=== PATIENT | male | born 1985 | race Caucasian/White ===

== ENCOUNTER 2019-06-05 08:13 | Emergency (ER) | payer OTHER, SELFPAY ==
[2019-06-05 08:35] VITALS: BP 147/82; PULSE 78; RESP 13; TEMP 36.6; O2SAT 99
--- NOTE | 2019-06-05 08:46 | ED.EYEPROB ---
HPI - Eye Problem General Chief complaint: Eye Problems Stated complaint: METAL IN RIGHT EYE Time Seen by Provider: 06/05/19 08:14 Source: patient Mode of arrival: Ambulatory Limitations: no limitations History of Present Illness HPI Narrative: 33-year-old male nonsmoker with noncontributory medical history presents with a chief complaint of a metallic foreign body in his right eye. 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 He has pain in tearing and some blurring of his vision. His tetanus is current. He denies any other injury. He does not were contacts. MD chief complaint: eye pain, eye redness and eye injury Onset (ago): day(s) Onset description: sudden Duration: constant Location: right eye Eye Symptoms: burning and redness Place: work Mechanism: occurred while hammering/grinding Severity: mild If Pain, Quality: sharp Treatments Prior to Arrival: none Related Data Patient tetanus UTD: Yes Previous Rx's Medication Instructions Recorded sulfacetamide sodium 1 drop EYE-RIGHT Q2H #15 ml 06/05/19 Review of Systems Constitutional Constitutional: Denies chills, Denies fatigue, Denies fever(s), Denies frequent falls, Denies lethargy and Denies weakness Eyes Eyes: Reports change in vision, Denies eye discharge, Reports irritation and Denies loss of vision ENT Ears, Nose, Mouth, and Throat: Denies change in voice, Denies dizziness, Denies neck pain, Denies sore throat and Denies throat swelling Cardiovascular Cardiovascular: Denies chest pain, Denies irregular heart rhythm, Denies lightheadedness, Denies palpitations, Denies dyspnea, Denies dyspnea on exertion and Denies orthopnea Respiratory Respiratory: Denies cough, Denies dyspnea, Denies dyspnea on exertion and Denies wheezing Gastrointestinal Gastrointestinal: Denies abdominal pain, Denies change in bowel habits, Denies diarrhea, Denies nausea and Denies vomiting Genitourinary Genitourinary: Denies hematuria, Denies flank pain, Denies urinary incontinence and Denies urinary urgency Musculoskeletal Musculoskeletal: Denies back pain, Denies muscle weakness, Denies neck pain, Denies numbness and Denies tingling Integumentary/Breasts Skin/Breast: Denies pruritus, Denies erythema, Denies rash and Denies wounds Neurologic Neurologic: Denies behavioral changes, Denies confusion, Denies dizziness, Denies frequent falls, Denies loss of vision, Denies numbness, Denies tingling and Denies weakness Psychiatric Psychiatric: Denies anxiety, Denies behavioral changes, Denies confusion, Denies depression, Denies homicidal ideation and Denies suicidal ideation Endocrine Endocrine: Denies fatigue, Denies flushing and Denies palpitations Hematologic/Lymphatic Hematologic/Lymphatic: Denies easy bruising Allergic/Immunologic Allergic/Immunologic: Denies urticaria, Denies throat swelling and Denies wheezing Patient History Substance Use Type: does not use Exam Narrative Exam Narrative: GEN: AOx3 and in mild distress EYES: Pupils are equal, round, and reactive to light and accommodation. Extraoccular muscles are intact bilaterally. Mild scleral injection of right eye. Small metallic foreign body noted at the 9 o'clock position under Wood's lamp. Small amount of fluorescein uptake under UV lamp. Complete resolution of painful symptoms after use of proparacaine. Small metallic esteban easily removed with blunt needle CHEST: Lungs are clear to auscultation bilaterally and free of wheezes, rales, or rhonchi. Heart rate is regular rhythm, there are no murmurs, clicks, rubs, or gallops. There is no chest wall tenderness. ABD: Abdomen is soft and nontender. There is no guarding or rebound. Bowel sounds are normal in all 4 quadrants. There is no mass or organomegaly. EXT: Full painless ROM of all extremities with no loss of sensation or strength. SKIN: Warm, pink, and dry. No erythema or rash Initial Vital Signs Initial Vital Signs: Vital Signs Temperature 97.8 F 06/05/19 08:35 Pulse Rate 78 06/05/19 08:35 Respiratory Rate 13 06/05/19 08:35 Blood Pressure 147/82 H 06/05/19 08:35 Pulse Oximetry 99 06/05/19 08:35 Course Orders Ordered: Discontinued Medications Proparacaine HCl (Parcaine 0.5% Ophth Catrachita) 1 drops EYE-RIGHT NOW ONE Stop: 06/05/19 08:47 Last Admin: 06/05/19 09:01 Dose: 1 drop Documented by: ARANZA Vital Signs Vital signs: Vital Signs - 8 hr 06/05/19 08:35 Temperature 97.8 F Pulse Rate 78 Respiratory Rate 13 Blood Pressure 147/82 H Pulse Oximetry 99 Discharge Plan Departure Patient Disposition: Home Clinical Impression: Corneal abrasion Qualifiers: Encounter type: initial encounter Laterality: right Qualified Code(s): S05.01XA - Injury of conjunctiva and corneal abrasion without foreign body, right eye, initial encounter Foreign body in eye Qualifiers: Encounter type: initial encounter Laterality: right Qualified Code(s): T15.91XA - Foreign body on external eye, part unspecified, right eye, initial encounter Discharge Date/Time: 06/05/19 09:09 Instructions: DI for Corneal Foreign Body-Eye Activity Restrictions/Additional Instructions: *You have been diagnosed with [corneal abrasion and foreign body right eye] *What to do: *Take medications as directed: Your prescription has been electronically transmitted to [employer] [facility] *Follow up with your primary care provider in 2-3 days, call for an appointment. Let them know you were seen in the Emergency Department and that we ask that you be seen in follow up *Return to ER if you should have any new, worsening or concerning symptoms Prescriptions: New sulfacetamide sodium 10 % drops 1 drop EYE-RIGHT Q2H Qty: 15 RF: 0
[2019-06-05] MEDS: PROPARACAINE 0.5% OPHTH SOL 1 DROPS EYE-RIGHT (09:01)
--- NOTE | 2019-06-05 09:04 | PC.NURSE ---
Addendum entered by Almita Javed R.N. 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
--- NOTE | 2019-06-05 09:05 | PC.NURSE ---
after propacaine drops.
== END 2019-06-05 09:09 | disposition home or self-care (01) ==
PROVIDERS: Emergency Provider Emergency Medicine
DX: T15.01XA Foreign body in cornea, right eye, initial encounter (principal); W45.8XXA Other foreign body or object entering through skin, initial encounter
CPT/HCPCS: 99281; 99282

== ENCOUNTER 2021-05-27 08:34 | Emergency (ER) | payer SELFPAY ==
[2021-05-27 09:56] VITALS: BP 118/78; PULSE 78; RESP 16; O2SAT 99
[2021-05-27] MEDS: CYCLOBENZAPRINE 10 MG TABLET PO (10:08)
[2021-05-27] MEDS: KETOROLAC 30 MG/ML VIAL IM (10:08)
--- NOTE | 2021-05-27 10:30 | PC.NURSE ---
CSM intact, limited by pain only. Denies bowel / bladder difficulty. 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
--- NOTE | 2021-05-27 10:36 | ED.BACK ---
HPI - Back Pain/Injury General Chief Complaint: Back Pain/Injury Stated Complaint: severe low back pain x2 days Time Seen by Provider: 05/27/21 10:36 Source: patient Mode of arrival: Wheelchair Limitations: no limitations History of Present Illness HPI Narrative: This is a 35-year-old male who comes with complaint of low back pain on the left. Patient has a history of L5-S1 injury. 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 He does not have any radiation currently. No loss of bowel or bladder control. He has some chronic numbness and tingling but no new changes. This is not different from his typical back pain and when flares. He has not any fevers or chills. Patient denies any weakness. He took an ibuprofen overnight but could not control his pain. He denies any other injuries. Had x-rays 2 months ago. He has not been to PT in the past. He does not tolerate opiates well he states that they make him nauseous, itchy and have red hot skin. Related Data Home Medications Medication Instructions Recorded Confirmed dextroamphetamine-amphetamine 10 10 mg PO QAM 05/27/21 05/27/21 mg tablet ibuprofen 800 mg tablet 800 mg PO Q8H PRN 05/27/21 05/27/21 Previous Rx's Medication Instructions Recorded cyclobenzaprine 10 mg tablet 10 mg PO TID PRN #14 tab 05/27/21 meloxicam 7.5 mg tablet 7.5 mg PO DAILY PRN #14 tab 05/27/21 Allergies Allergy/AdvReac Type Severity Reaction Status Date / Time Opioids - Morphine Analogues AdvReac Unknown Verified 05/27/21 09:59 Review of Systems Review of Systems ROS Unobtainable: All systems reviewed & are unremarkable except as noted in HPI and below Patient History Medical History Back injury Substance Use Type: does not use Exam Narrative Exam Narrative: GENERAL: Alert and oriented x three, male in moderate distress. HEENT: Head normocephalic, atraumatic, EOMI, pupils reactive, face symmetric, moist mucous membranes NECK: Supple, full range of motion CARDIOVASCULAR: Regular rate and rhythm without murmurs, rubs or gallops. RESPIRATORY: Breath sounds equal bilaterally, no wheezes rales or rhonchi. ABDOMEN: Soft, nontender. Normoactive bowel sounds all 4 quadrants. No guarding or rebound, rigidity, no mass : No CVA tenderness BACK: No cervical, thoracic or lumbar vertebral point tenderness. Patient has tenderness over the left SI joint which is mild. He has decreased range of motion, and has pain rolling from side to side on the bed. Rectal exam is deferred. Muscle strength is 5/5 in lower extremities, patient has increased pain with leg raise bilaterally. DTRs are 2/4 and lower extremities. Dorsalis pedis and tibialis pulses are 2+ and lower extremities. Sensation is intact in the lower extremities. EXTREMITIES: Normal range of motion, no clubbing or edema. Neurovascularly intact NEUROLOGICAL: Cranial nerves II through XII grossly intact. Moving all extremities SKIN: Warm, dry, no petechiae, no rashes or lesions. Initial Vital Signs Initial Vital Signs: Vital Signs Pulse Rate 78 05/27/21 09:56 Respiratory Rate 16 05/27/21 09:56 Blood Pressure 118/78 05/27/21 09:56 Pulse Oximetry 99 05/27/21 09:56 Course Orders Ordered: Discontinued Medications Cyclobenzaprine HCl (Cyclobenzaprine 10 Mg Tablet) 10 mg PO NOW ONE Stop: 05/27/21 10:01 Last Admin: 05/27/21 10:08 Dose: 10 mg Documented by: ELMIRA Ketorolac Tromethamine (Ketorolac 30 Mg/Ml Vial) 30 mg IM NOW ONE Stop: 05/27/21 10:01 Last Admin: 05/27/21 10:08 Dose: 30 mg Documented by: ELMIRA Vital Signs Vital signs: Vital Signs - 8 hr 05/27/21 09:56 Pulse Rate 78 Respiratory Rate 16 Blood Pressure 118/78 Pulse Oximetry 99 MDM - Back Pain/Injury MDM Narrative Medical decision making narrative: This is a 35-year-old male who comes in with acute on chronic low back pain which was exacerbated when he was lifting a 5 gal bucket. Patient was having some improvement with Toradol and Flexeril here in the department. He feels comfortable with pain management and follow-up with primary care. He does not have a dedicated PCP but does go to the walk-in clinic. We discussed that PT may be helpful. He had x-rays 2 months ago does not have any red flag symptoms that would indicate additional testing at this time. Discharge Plan Departure Patient Disposition: Home Clinical Impression: Pain in left lumbar region of back Instructions: DI for Low Back Pain Activity Restrictions/Additional Instructions: Follow-up with primary care for recheck. You may find improvement over the long-term with physical therapy or potentially other interventions. You can call the call center at [phone] to establish with a primary care physician. You may take Flexeril 1 tablet every 8 hours as needed for muscle spasm. Meloxicam 1 tablet q.12 hours as needed pain. You may take Tylenol up to a 1000 mg every 8 hours as needed. Prescription sent to [facility] Please return for rapidly worsening or uncontrolled pain, new numbness, weakness, loss of bowel or bladder control, fevers or other new or concerning symptoms. Prescriptions: New meloxicam 7.5 mg tablet 7.5 mg PO DAILY PRN (Reason: pain) Qty: 14 0RF cyclobenzaprine 10 mg tablet 10 mg PO TID PRN (Reason: muscle spasm) Qty: 14 0RF No Action ibuprofen 800 mg Tablet 800 mg PO Q8H PRN (Reason: pain mod) 0RF dextroamphetamine-amphetamine 10 mg tablet 10 mg PO QAM 0RF
--- NOTE | 2021-05-27 14:42 | PC.NURSE ---
late entry: provided walker for pt ambulation.
== END 2021-05-27 11:00 | disposition home or self-care (01) ==
PROVIDERS: Emergency Provider Emergency Medicine
DX: M54.50 Low back pain, unspecified (principal); Z88.5 Allergy status to narcotic agent
CPT/HCPCS: 96372; 99283; J1885

== ENCOUNTER 2022-02-19 12:23 | Emergency (ER) | payer OTHER, SELFPAY ==
[2022-02-19 12:42] VITALS: BP 166/97; PULSE 97; RESP 15; TEMP 36.6; O2SAT 100; BMI 31.5
--- NOTE | 2022-02-19 12:49 | DI.RAD.S_ITS ---
PROCEDURE: XR HAND LT MIN 3V INDICATIONS: hand/5th digit injury TECHNIQUE: 3 views of the hand(s) acquired. COMPARISON: None. FINDINGS: Bones: No fractures or dislocations. Carpal bones are normally aligned. No suspicious bony lesions. Soft tissues: Soft tissue injury is seen, with swelling. There is radiopaque debris seen along the tip of the 5th finger. Overlying bandaging material is seen IMPRESSION: No acute fracture is identified. Soft tissue injury of the 5th finger can be seen. Dictated by: Stephen Del Rosario M.D. on 02/19/2022 at 12:13 Approved by: Stephen Del Rosario M.D. on 02/19/2022 at 12:14
--- NOTE | 2022-02-19 13:40 | ED.GENADULT ---
HPI - General Adult General Chief complaint: Extremity Injury, Upper Stated complaint: Laceration on the left hand Time Seen by Provider: 02/19/22 13:31 Source: patient Mode of arrival: Ambulatory History of Present Illness HPI narrative: Patient is a 36-year-old male. He is right-hand dominant who is here with a left little finger injury. 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 Cause an injury to his left little finger. Does not know when his last tetanus shot was. Has not done any intervention prior to arrival other than covering it with a bandage. No other injuries from the event. Related Data Home Medications Medication Instructions Recorded Confirmed dextroamphetamine-amphetamine 10 10 mg PO QAM 05/27/21 05/27/21 mg tablet ibuprofen 800 mg tablet 800 mg PO Q8H PRN pain mod 05/27/21 05/27/21 Previous Rx's Medication Instructions Recorded cyclobenzaprine 10 mg tablet 10 mg PO TID PRN muscle spasm #14 05/27/21 tabs meloxicam 7.5 mg tablet 7.5 mg PO DAILY PRN pain #14 tabs 05/27/21 Allergies Allergy/AdvReac Type Severity Reaction Status Date / Time Opioids - Morphine Analogues AdvReac Unknown Verified 02/19/22 12:42 Review of Systems Musculoskeletal Comments: Injury to left little finger Integumentary/Breasts Comments: Injury to the skin of the left little finger Neurologic Comments: No numbness over the area Hematologic/Lymphatic On Anticoagulants: No Patient History Medical History Back injury Gastroesophageal reflux disease Social History Smoking Status: Unknown if ever smoked Smoking Status: Unknown if ever smoked alcohol intake frequency: holidays/special occasions only Substance Use Type: does not use Exam Initial Vital Signs Initial Vital Signs: Vital Signs Temperature 97.9 F 02/19/22 12:42 Pulse Rate 97 H 02/19/22 12:42 Respiratory Rate 15 02/19/22 12:42 Blood Pressure 166/97 H 02/19/22 12:42 Pulse Oximetry 100 02/19/22 12:42 Oxygen Delivery Method 02/19/22 12:42 [facility] Head: normal to inspection and normocephalic Cardio Pulses: radial pulses present on the left Skin Other: Patient has a complete avulsion of the skin of the left little finger that involves just proximal to the MCP joint to distal to the D IP joint but proximal to the nail. The medial aspect of the little finger skin is intact over the palmar lateral and dorsal aspect is completely avulsed. Neuro Other: Sensation intact to light touch distal aspect of left little finger Extrem Other: There does not appear to be any tendon or bone involvement. He can flex and extend his little finger of very small amount but he states that it feels ?stiff ? Procedures Nerve Block Nerve Block 1: Local Anesthetic: lidocaine 1% Amount of anesthesia used (mL): 15 Side: left Nerve Blocks: digital Procedure Successful: Yes Patient Tolerated Procedure: Well Course Orders Ordered: ED Orders 02/19/22 12:49 XR hand LT min 3V Stat 02/19/22 15:15 COVID19 -Nasal RAPID/Pre-Proc Stat Discontinued Medications Diphtheria/Tetanus/Acell Pertussis (Tet,Diph,Pertuss(Acell),Vac/Pf 0.5 Ml Syringe) 0.5 ml IM .ONCE ONE Stop: 02/19/22 13:34 Last Admin: 02/19/22 13:54 Dose: 0.5 ml Documented By: KALIN Cefazolin Sodium/Dextrose (Ancef) 100 mls @ 200 mls/hr IV NOW ONE Stop: 02/19/22 14:29 Last Infusion: 02/19/22 14:52 Dose: 0 mls/hr Documented By: Admin: 02/19/22 14:20 Dose: 200 mls/hr Documented By: ESPERANZA Lidocaine HCl (Lidocaine 1% 20 Ml) 10 ml INJ NOW ONE Stop: 02/19/22 14:01 Last Admin: 02/19/22 14:24 Dose: 10 ml Documented By: CTS Vital Signs Vital signs: Vital Signs - 8 hr 02/19/22 12:42 Temperature 97.9 F Pulse Rate 97 H Respiratory Rate 15 Blood Pressure 166/97 H Pulse Oximetry 100 Oxygen Delivery Method Room Air Medical Decision Making Lab Data Labs: Lab Results 02/19/22 Range/Units 15:15 SARS-CoV-2 (PCR) Negative (Negative) Imaging Data Extremity x-ray #1: Radiologist's Impression: [address] [address] XRay Report Signed Patient: Rojas Peters II MR#: [id number] : 1985 Acct:[id number] Age/Sex: 36 / M Date of Service: 02/19/22 Loc: ED Accession Number: [id number] ?? Procedure: XR hand LT min 3V Ordering Provider: Angel Rob D.O. PROCEDURE:? XR HAND LT MIN 3V ? INDICATIONS:? hand/5th digit injury ? TECHNIQUE:? 3 views of the hand(s) acquired.? ? COMPARISON:? None. ? FINDINGS:? ? Bones:? No fractures or dislocations.? Carpal bones are normally aligned.? No suspicious bony lesions.? ? Soft tissues:? Soft tissue injury is seen, with swelling.? There is radiopaque debris seen along the tip of the 5th finger.? Overlying bandaging material is seen ? ? ? IMPRESSION:? No acute fracture is identified. ? Soft tissue injury of the 5th finger can be seen. ? ? Dictated by: Stephen Del Rosario M.D. on 02/19/2022 at 12:13 ? ? Approved by: Stephen Del Rosario M.D. on 02/19/2022 at 12:14? MDM Narrative Medical decision making narrative: No fractures noted. The patient is neurovascularly intact. His tetanus was updated. He was given 2 g of Ancef. Discussed the case with orthopedics here at this facility who recommended patient be transferred to facility that has hand/Plastic surgery is he most likely is going to need a full-thickness graft. Discussed the case with Dr. Sanon at [facility] with the hand surgery who was able to evaluate the clinical pictures that were sent. She recommended cleaning the wound which was done. A dressing was placed over the area. It was splinted. He will be sent by private vehicle to [facility] for further evaluation. Discharge Plan Departure Patient Disposition: [facility] Clinical Impression: Avulsion of skin of finger Activity Restrictions/Additional Instructions: After discharge your to go to the emergency department at [facility] in [facility]. I recommend nothing to eat or drink between now and when you are evaluated there is your most likely going to need surgical intervention. Prescriptions: No Action ibuprofen 800 mg Tablet 800 mg PO Q8H PRN (Reason: pain mod) dextroamphetamine-amphetamine 10 mg tablet 10 mg PO QAM meloxicam 7.5 mg tablet 7.5 mg PO DAILY PRN (Reason: pain) Qty: 14 0RF cyclobenzaprine 10 mg tablet 10 mg PO TID PRN (Reason: muscle spasm) Qty: 14 0RF
[2022-02-19] MEDS: TET,DIPH,PERTUSS(ACELL),VAC/PF 0.5 ML SYRINGE IM (13:54)
[2022-02-19] MEDS: CEFAZOLIN 2 GM/100 ML PREMIX 100 ML IV (14:20)
[2022-02-19] MEDS: LIDOCAINE 1% 20 ML 10 ML INJ (14:24)
[2022-02-19 15:38] LABS: COVID19 -Nasal RAPID Negative (Negative)
[2022-02-19] MEDS: ACETAMINOPHEN 325 MG TABLET 975 MG PO (16:00)
[2022-02-19 16:24] VITALS: BP 154/48; PULSE 77; RESP 16; O2SAT 100
--- NOTE | 2022-02-19 16:25 | PC.NURSE ---
Pt L 5th digit injured in metal steam drum at work which appears to be a partial degloving. bone and tendon exposed. L hand XR'd. Lidocaine block injected by Dr oRb for pain control. Pt has adverse reactions to opioid medications and opted for tylenol. IV placed. labs drawn. covid sent. Pt soaking hand in betasept and water solution and scrubbed of debris with a surgical sponge. finger splint applied and hand wrapped with gauze secured with coban. Pt DC POV with family member to [facility] ED for surgical intervention. Pt AAOx3 ambulatory. Advised to stay NPO. Transfer packet made and given to pt to provide to [facility]. Pt denies any further questions and ambulated out of ED with steady gait.
== END 2022-02-19 16:30 | disposition short-term general hospital (02) ==
PROVIDERS: Emergency Provider Emergency Medicine
DX: S61.217A Laceration without foreign body of left little finger without damage to nail, initial encounter (principal); W31.89XA Contact with other specified machinery, initial encounter; Y99.0 Civilian activity done for income or pay; Z20.822 Contact with and (suspected) exposure to COVID-19; Z23 Encounter for immunization
CPT/HCPCS: 64450; 73130; 87635; 90471; 96365; 99284; C9803; 90715; J0690

== ENCOUNTER 2024-07-25 14:43 | Emergency (ER) | payer OTHER, SELFPAY ==
[2024-07-25] VITALS (13 sets, daily range): BP systolic 114–134; BP diastolic 65–87; PULSE 69–81; RESP 14–25; TEMP 36.1–36.9; O2SAT 98–100; BMI 30.8
[2024-07-25 15:31] LABS: Add Manual Diff / Slide Review NO; Basophils Absolute Auto 100 /uL (0-100); Basophils Percent Auto 0.5 % (0-2); Eosinophils Absolute Auto 0 /uL (0-450); Eosinophils Percent Auto 0.1 % (2-4); Hematocrit 40.7 % (41-53); Hemoglobin 14.1 g/dL (13.5-17.5); Lymphocytes Absolute Auto 1700 /uL (1100-4500); Lymphocytes Percent Auto 15.2 % (25-40); Mean Corpuscular HGB Conc 34.6 % (30-36); Mean Corpuscular Hemoglobin 30.6 PG (26-34); Mean Corpuscular Volume 88.5 fL (80-100); Monocytes Absolute Auto 900 /uL (0-900); Monocytes Percent Auto 8.6 % (3-14); Neutrophils Absolute Auto 8400 /uL (1500-7000); Neutrophils Percent Auto 75.6 % (50-75); Platelet Count 182 X10^3/uL (150-400); Red Cell Distribution Width 13.5 % (11.6-14.8); White Blood Cell Count 11.1 X10^3/uL (4.5-11.0)
[2024-07-25 15:41] LABS: Alanine Aminotransferase 42 IU/L (<50); Albumin 4.5 g/dL (3.5-5.0); Albumin Globulin Ratio 1.4 (1.0-2.8); Alkaline Phosphatase 57 U/L (38-126); Aspartate Aminotransferase 34 IU/L (17-59); Blood Urea Nitrogen 13 mg/dL (9-20); Calcium 8.9 mg/dL (8.4-10.2); Carbon Dioxide 27 mmol/L (22-32); Chloride 100 mmol/L (98-107); Estimated Glomerular Filt Rate > 60 mL/min (>60); Globulin 3.3 g/dL (1.7-4.1); Glucose 109 mg/dL (70-100); HEMOLYSIS < 15 (0-50); Lipase 94 U/L (23-300); Potassium 4.2 mmol/L (3.4-5.1); Sodium 135 mmol/L (137-145); Total Protein 7.8 g/dL (6.3-8.2)
[2024-07-25 16:27] LABS: Influenza A - CEPHEID Flu A POSITIVE (NEGATIVE); Influenza B - CEPHEID Flu B NEGATIVE (NEGATIVE); Respiratory Syncytial Virus Negative (Negative)
[2024-07-25 16:36] LABS: COVID-19 CEPHEID 4-PLEX PCR Negative (Negative)
--- NOTE | 2024-07-25 17:22 | DI.CT.S_ITS ---
P are now have indenting Courtney do not know in on a separate cm okay area a K RI I do not know anything about K K a K a yet at show the doors at a K a.m. 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 Coronal and sagittal reformats were performed. For radiation dose reduction, the following was used: automated exposure control, adjustment of mA and/or kV according to patient size. COMPARISON: None. FINDINGS: Image quality: Diagnostic. Lower Chest: Right basilar posterior pneumonia. ABDOMEN: Liver: No solid mass. Mild diffuse hepatic steatosis. Gallbladder: No radiopaque gallstones or wall thickening. Biliary ducts: No biliary dilation. Pancreas: No ductal dilation. Spleen: Size is within normal limits. Adrenal Glands: No adrenal nodules. Kidneys and Ureters: No hydronephrosis. No solid mass. No complex renal cystic lesion which requires follow up. Stomach and Bowel: Normal colonic caliber, without significant wall thickening. Normal caliber appendix with some air present within it. No inflammatory change in the adjacent fat. Peritoneum: No abnormal intraperitoneal fluid. No free air. Ventral Wall: No significant ventral hernia. Abdominal Nodes: No retroperitoneal or mesenteric adenopathy by size criteria. Vessels: Aorta and inferior vena cava are normal in size. PELVIS: Pelvic Organs: Unremarkable. Bladder: No bladder wall thickening, accounting for underdistention. Pelvic Nodes: No enlarged lymph nodes. Miscellaneous: No inguinal hernias are seen. Bones: No aggressive osseous abnormality. IMPRESSION: Focal right basilar pneumonia. Consider aspiration. 2. No evidence acute appendicitis. 3. Mild diffuse hepatic steatosis. Dictated by: Joe Greenfield M.D. on 07/25/2024 at 18:09 Approved by: Joe Greenfield M.D. on 07/25/2024 at 18:15
--- NOTE | 2024-07-25 17:29 | ED.ABDPAIN ---
HPI - Abdominal Pain General Chief Complaint: Abdominal Pain Stated Complaint: abd pain t-2 Time Seen by Provider: 07/25/24 17:17 Source: patient Mode of arrival: Ambulatory History of Present Illness HPI narrative: 38-year-old male previously healthy with right lower quadrant abdominal pain. Describes as a sharp not associated with urinary symptoms please see may has a fever he feels unwell and also has been anorexic. No previous surgeries. Tested positive for influenza today but not having cough or sore throat. Nonsmoker, uses alcohol only occasionally. No history of structural disease. Listed to having an allergy to morphine, mother is present in the room and contributes to history also reports he has a penicillin allergy. Related Data Home Medications Medication Instructions Recorded Confirmed dextroamphetamine-amphetamine 10 10 mg PO QAM 05/27/21 05/27/21 mg tablet ibuprofen 800 mg tablet 800 mg PO Q8H PRN pain mod 05/27/21 05/27/21 Previous Rx's Medication Instructions Recorded cyclobenzaprine 10 mg tablet 10 mg PO TID PRN muscle spasm #14 05/27/21 tabs meloxicam 7.5 mg tablet 7.5 mg PO DAILY PRN pain #14 tabs 05/27/21 azithromycin 250 mg tablet 250 mg PO DAILY 4 days #4 tabs 07/25/24 cefpodoxime 200 mg tablet 200 mg PO BID #14 tabs 07/25/24 Allergies Allergy/AdvReac Type Severity Reaction Status Date / Time Opioids - Morphine Analogues AdvReac Unknown Verified 02/19/22 12:42 Patient History Medical History Back injury Gastroesophageal reflux disease Social History Smoking Status: Never smoker Smoking Status: Never smoker alcohol intake frequency: holidays/special occasions only Exam Initial Vital Signs Initial Vital Signs: Vital Signs Temperature 98.5 F 07/25/24 15:07 Pulse Rate 81 07/25/24 15:07 Respiratory Rate 16 07/25/24 15:07 Blood Pressure 134/87 07/25/24 15:07 Pulse Oximetry 100 07/25/24 15:07 Oxygen Delivery Method Room Air 07/25/24 15:07 Vital signs are all reassuring Const Other: Well-appearing HENMT HENMT Other: Normocephalic atraumatic Resp Other: Lungs are clear equal breath sounds Cardio Other: Regular rhythm rate no murmur rub or gallop GI Other: Normal bowel sounds soft minimal right lower quadrant tenderness no mass no CVAT Skin Other: Warm and dry without rash Neuro Other: Alert and oriented Course Orders Ordered: ED Orders 07/25/24 15:17 Complete Blood Count AUTO DIFF Stat Comprehensive Metabolic Panel Stat Covid-19 + FLU A/B + RSV - PCR Stat Lipase Stat 07/25/24 17:22 CT abdomen pelvis w con Stat Discontinued Medications Azithromycin (Azithromycin 250 Mg Tablet) 500 mg PO NOW ONE Stop: 07/25/24 18:58 Last Admin: 07/25/24 19:19 Dose: 500 mg Ceftriaxone Sodium 2,000 mg/ (Sodium Chloride) 100 mls @ 200 mls/hr IV NOW ONE Stop: 07/25/24 18:57 Last Infusion: 07/25/24 19:57 Dose: Infused Ondansetron HCl (Ondansetron 4 Mg/2 Ml Inj) 4 mg IV NOW PRN PRN Reason: Nausea And Vomiting Ondansetron HCl (Ondansetron 4 Mg Odt) 4 mg PO NOW PRN PRN Reason: Nausea And Vomiting Vital Signs Vital signs: Vital Signs - 8 hr 07/25/24 15:07 07/25/24 17:05 07/25/24 17:05 Temperature 98.5 F Pulse Rate 81 69 Respiratory Rate 16 17 Blood Pressure 134/87 120/73 Pulse Oximetry 100 100 Oxygen Delivery Method Room Air 07/25/24 17:10 07/25/24 17:10 07/25/24 17:15 Temperature Pulse Rate 69 Respiratory Rate 14 Blood Pressure 121/73 122/75 Pulse Oximetry 100 Oxygen Delivery Method 07/25/24 17:15 07/25/24 17:20 07/25/24 17:20 Temperature Pulse Rate 71 70 Respiratory Rate 19 25 H Blood Pressure 130/81 Pulse Oximetry 99 100 Oxygen Delivery Method 07/25/24 17:25 07/25/24 17:25 07/25/24 17:30 Temperature Pulse Rate 73 69 Respiratory Rate 17 19 Blood Pressure 121/71 Pulse Oximetry 100 100 Oxygen Delivery Method 07/25/24 17:30 07/25/24 17:35 07/25/24 17:35 Temperature Pulse Rate 69 Respiratory Rate 18 Blood Pressure 114/65 119/68 Pulse Oximetry 99 Oxygen Delivery Method 07/25/24 18:00 07/25/24 18:30 07/25/24 19:00 Temperature Pulse Rate 69 73 72 Respiratory Rate 20 25 H 18 Blood Pressure Pulse Oximetry 99 100 98 Oxygen Delivery Method 07/25/24 19:30 07/25/24 20:06 Temperature 97.0 F L Pulse Rate 74 Respiratory Rate 19 Blood Pressure Pulse Oximetry 100 Oxygen Delivery Method MDM - Abdominal Pain Lab Data Lab results narrative: Nursing staff report that he is positive on swab for influenza. White count is minimally elevated at 11.1 chemistries are unremarkable dip urinalysis is unremarkable 07/25/24 15:17 07/25/24 15:17 Labs: Lab Results 07/25/24 Range/Units 15:17 WBC 11.1 H (4.5-11.0) X10^3/uL RBC 4.60 (4.5-5.9) X10^6/uL Hgb 14.1 (13.5-17.5) g/dL Hct 40.7 L (41-53) % MCV 88.5 (80-100) fL MCH 30.6 (26-34) PG MCHC 34.6 (30-36) % RDW 13.5 (11.6-14.8) % Plt Count 182 (150-400) X10^3/uL Neut % (Auto) 75.6 H (50-75) % Lymph % (Auto) 15.2 L (25-40) % [place] % (Auto) 8.6 (3-14) % Eos % (Auto) 0.1 L (2-4) % Baso % (Auto) 0.5 (0-2) % Neut # (Auto) 8400 H (2199-6262) /uL Lymph # (Auto) 1700 (2748-6444) /uL [place] # (Auto) 900 (0-900) /uL Eos # (Auto) 0 (0-450) /uL Baso # (Auto) 100 (0-100) /uL Sodium 135 L (137-145) mmol/L Potassium 4.2 (3.4-5.1) mmol/L Chloride 100 (98-107) mmol/L Carbon Dioxide 27 (22-32) mmol/L BUN 13 (9-20) mg/dL Creatinine 0.93 (0.66-1.25) mg/dL Estimated GFR > 60 (>60) mL/min BUN/Creatinine Ratio 14.0 (6-22) Glucose 109 H (70-100) mg/dL Calcium 8.9 (8.4-10.2) mg/dL Total Bilirubin 1.0 (0.2-1.3) mg/dL AST 34 (17-59) IU/L ALT 42 (<50) IU/L Alkaline Phosphatase 57 (38-126) U/L Total Protein 7.8 (6.3-8.2) g/dL Albumin 4.5 (3.5-5.0) g/dL Globulin 3.3 (1.7-4.1) g/dL Albumin/Globulin Ratio 1.4 (1.0-2.8) Lipase 94 (23-300) U/L SARS-CoV-2 (PCR) Negative (Negative) Influenza A (RT-PCR) Flu a positive H (NEGATIVE) Influenza B (RT-PCR) Flu b negative (NEGATIVE) RSV (PCR) Negative (Negative) Point of care testing: Urine Dip Bedside Urine Glucose Negative Bedside Urine Bilirubin - Negative Bedside Urine Ketone - Negative Urine Specific [place] 1.010 Bedside Urine Occult Blood - Negative Bedside Urine pH 7.5 Bedside Urine Protein - Negative Bedside Urine Urobilinogen - Negative Bedside Urine Nitrite - Negative Bedside Urine Leukocytes - Negative Esterase Imaging Data CT scan - abdomen/pelvis: My Impression: Independent review a CT abdomen and pelvis, infiltrate at the right base, no inflammatory changes in the abdomen Radiologist's Impression: PROCEDURE: CT ABDOMEN PELVIS W CON INDICATIONS: rlq abd pain TECHNIQUE: After the administration of intravenous contrast, axial sections acquired from the lung bases to the pubic symphysis. Coronal and sagittal reformats were performed. For radiation dose reduction, the following was used: automated exposure control, adjustment of mA and/or kV according to patient size. COMPARISON: None. FINDINGS: Image quality: Diagnostic. Lower Chest: Right basilar posterior pneumonia. ABDOMEN: Liver: No solid mass. Mild diffuse hepatic steatosis. Gallbladder: No radiopaque gallstones or wall thickening. Biliary ducts: No biliary dilation. Pancreas: No ductal dilation. Spleen: Size is within normal limits. Adrenal Glands: No adrenal nodules. Kidneys and Ureters: No hydronephrosis. No solid mass. No complex renal cystic lesion which requires follow up. Stomach and Bowel: Normal colonic caliber, without significant wall thickening. Normal caliber appendix with some air present within it. No inflammatory change in the adjacent fat. Peritoneum: No abnormal intraperitoneal fluid. No free air. Ventral Wall: No significant ventral hernia. Abdominal Nodes: No retroperitoneal or mesenteric adenopathy by size criteria. Vessels: Aorta and inferior vena cava are normal in size. PELVIS: Pelvic Organs: Unremarkable. Bladder: No bladder wall thickening, accounting for underdistention. Pelvic Nodes: No enlarged lymph nodes. Miscellaneous: No inguinal hernias are seen. Bones: No aggressive osseous abnormality. IMPRESSION: Focal right basilar pneumonia. Consider aspiration. 2. No evidence acute appendicitis. 3. Mild diffuse hepatic steatosis. Dictated by: Joe Greenfield M.D. on 07/25/2024 at 18:09 Approved by: Joe Greenfield M.D. on 07/25/2024 at 18:15 Dictated by: Joe Greenfield M.D. on 07/25/2024 at 18:41 Approved by: Joe Greenfield M.D. on 07/25/2024 at 18:41 MDM Narrative Medical decision making narrative: 38-year-old previously healthy male presenting with right lower quadrant abdominal pain. Abdomen was not impressively tender. He tested positive for influenza but is not febrile and really does not have much for respiratory symptoms. Appendicitis was considered, pyelonephritis was considered bowel obstruction was considered. CT abdomen and pelvis was obtained and interestingly he had an infiltrate at the right base. He does also have a mild leukocytosis, I am going to empirically treat him with a cephalosporin and a macrolide. Discharge Plan Departure Patient Disposition: Home Clinical Impression: Abdominal pain Qualifiers: Abdominal location: right lower quadrant Qualified Code(s): R10.31 - Right lower quadrant pain Pneumonia Qualifiers: Pneumonia type: due to unspecified organism Laterality: right Lung location: lower lobe of lung Qualified Code(s): J18.9 - Pneumonia, unspecified organism Activity Restrictions/Additional Instructions: Emergency department evaluation shows that you have a pneumonia tonight. It is interesting that it is perceived in the right lower abdomen but you do not have evidence of appendicitis or other intra-abdominal process. I have started antibiotics, your next dose will need to be tomorrow take them as prescribed. The prescribed antibiotics are cefpodoxime twice daily for 7 days. Azithromycin 1 tablet daily for 4 days. You can use Tylenol and or ibuprofen as needed for pain. Follow up soon with your primary care doctor. Return to the emergency department for increasing chest pain shortness of breath or other acute symptoms Prescriptions: New azithromycin 250 mg tablet 250 mg PO DAILY 4 Days Qty: 4 0RF Rx Instructions: start on day 2 of therapy cefpodoxime 200 mg tablet 200 mg PO BID Qty: 14 0RF Rx Instructions: must administer with a meal/food No Action ibuprofen 800 mg Tablet 800 mg PO Q8H PRN (Reason: pain mod) dextroamphetamine-amphetamine 10 mg tablet 10 mg PO QAM meloxicam 7.5 mg tablet 7.5 mg PO DAILY PRN (Reason: pain) Qty: 14 0RF cyclobenzaprine 10 mg tablet 10 mg PO TID PRN (Reason: muscle spasm) Qty: 14 0RF Stand Alone Forms: Patient Portal/API/Survey
[2024-07-25] MEDS: AZITHROMYCIN 250 MG TABLET 500 MG PO (19:19)
[2024-07-25] MEDS: cefTRIAXone 2,000 MG in SODIUM CHLORIDE 0.9% 100 ML 200 MG IV (19:26)
== END 2024-07-25 20:09 | disposition home or self-care (01) ==
PROVIDERS: Emergency Provider Emergency Medicine
DX: R10.31 Right lower quadrant pain (principal); J18.9 Pneumonia, unspecified organism
CPT/HCPCS: 0241U; 74177; 80053; 81003; 83690; 85025; 96365; 99284; 99285; J0696; Q9967